=== PATIENT | male | born 1940 | race Caucasian/White ===

== ENCOUNTER 2016-09-15 15:29 | Inpatient (IN) | payer MEDICARE, MEDICAID ==
[~2016-09-15] VITALS: Ht 167.6 cm; Wt 68.0 kg
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
[2016-09-15 16:15] LABS: BASOPHILS # (AUTO) 0.2 /CMM (0.0-0.2); BASOPHILS % (AUTO) 2.6 % (0.0-2.0); EOSINOPHILS # (AUTO) 0.1 /CMM (0.0-0.7); EOSINOPHILS % (AUTO) 0.7 % (0.0-6.0); HEMATOCRIT 44 % (39-51); HEMOGLOBIN 14.1 g/dL (13.5-17.5); LYMPHOCYTES # (AUTO) 0.9 /CMM (0.8-4.8); LYMPHOCYTES % (AUTO) 9.6 % (20.0-44.0); MEAN CORPUSCULAR HEMOGLOBIN 28 PG (26.0-33.0); MEAN CORPUSCULAR HGB CONC 32 g/dl (31.0-36.0); MEAN CORPUSCULAR VOLUME 87 fL (80-96); MONOCYTES # (AUTO) 0.6 /CMM (0.1-1.30); MONOCYTES % (AUTO) 5.9 % (2.0-12.0); NEUTROPHILS # (AUTO) 7.8 /CMM (1.8-8.9); NEUTROPHILS % (AUTO) 81.2 % (43.0-81.0); PLATELET COUNT (AUTO) 343 /CMM (150-450); RDW COEFFICIENT OF VARIATION 13.5 (11.5-15.0); RED BLOOD CELL COUNT(AUTO) 5.11 MIL/uL (4.5-6.0); WHITE BLOOD COUNT (AUTO) 9.6 K/uL (4.3-11.0)
--- NOTE | 2016-09-15 16:20 | NUR ---
PT UNABLE TO PROVIDE URINE AT THIS TIME. REQUESTS FOR SOMETHING TO DRINK- PROVIDED.
[2016-09-15 16:26] LABS: CALCIUM, SERUM 8.6 mg/dL (8.5-10.1); CARBON DIOXIDE 26 mmol/L (21-32); CHLORIDE 105 mmol/L (98-107); CREATININE 1.6 mg/dL (0.6-1.3); POTASSIUM 3.8 mmol/L (3.5-5.1); SODIUM SERUM 140 mmol/L (136-145); UREA NITROGEN, BLOOD 24 mg/dL (7-18)
[2016-09-15 16:35] LABS: ALANINE AMINOTRANSFERASE 22 U/L (12-78); ALBUMIN 3.8 g/dL (3.4-5.0); ALCOHOL, BLOOD < 3 mg/dL (0-0); ALKALINE PHOSPHATASE 150 U/L (46-116); ASPARTATE AMINOTRANSFERASE 21 U/L (15-37); BILIRUBIN,DIRECT 0.1 mg/dL (0.0-0.2); BILIRUBIN,TOTAL 0.5 mg/dL (0.2-1.0); GLUCOSE 169 mg/dL (74-106); TOTAL PROTEIN, SERUM 7.2 g/dL (6.4-8.2)
[2016-09-15 16:39] LABS: ACETAMINOPHEN 0 ug/ml (10-30); SALICYLATE 1.4 mg/dL (2.8-20.0)
--- NOTE | 2016-09-15 17:15 | NUR ---
PT STILL UNABLE TO PROVIDE URINE SAMPLE AT THIS TIME.
--- NOTE | 2016-09-15 18:21 | NUR ---
CALLED PINKY BOOK OR SCRIPT EDITOR THREE TIMES. CALL GOES STRAIGHT TO VOICEMAIL.
--- NOTE | 2016-09-15 19:15 | NUR ---
CALLED ALYSA CASTANON , SHE CALLED EST[facility]EN AND SHE WAS NOTIFIED THAT [facility] IS ON VACATION. ART WAS CONTACTED AND WILL BE COMINING IN TO SEE THE PATIENT.
--- NOTE | 2016-09-15 19:30 | NUR ---
Art, LEAD HANDLER, at bedside for eval.
[2016-09-15] MEDS ORDERED: MAG30ORA PO (20:23)
[2016-09-15] MEDS ORDERED: DEXT15DR6 EACHEYE (20:23)
[2016-09-15] MEDS ORDERED: LORA1TAB PO (20:23)
[2016-09-15] MEDS ORDERED: FINA5TAB4 PO (20:23)
[2016-09-15] MEDS ORDERED: APIX5TAB PO (20:23)
[2016-09-15] MEDS ORDERED: AMIO200T2 PO (20:23)
[2016-09-15] MEDS ORDERED: NITR0.4T6 SL (20:23)
[2016-09-15] MEDS ORDERED: HYDR-552 PO (20:23)
[2016-09-15] MEDS ORDERED: NA P133E RC (20:23)
[2016-09-15] MEDS ORDERED: GABA-532 PO (20:23)
[2016-09-15] MEDS ORDERED: MULT-70 PO (20:23)
[2016-09-15] MEDS ORDERED: HYDR-3326 PO (20:23)
[2016-09-15] MEDS ORDERED: BUME1TAB4 PO (20:23)
[2016-09-15] MEDS ORDERED: TYL2T PO (20:23)
--- NOTE | 2016-09-15 20:46 | NUR ---
Report given to Shahla BEE for gps admission and dolores.
--- NOTE | 2016-09-15 20:50 | NUR ---
Patient transported to gps 214, no incident noted.
--- NOTE | 2016-09-15 21:00 | NUR ---
GPS RN NOTES ADMITTED A 76 YEARS OLD MALE PT FROM ER WITH DIAGNOSIS OF PSYCHOSIS UNDER KYLER QUICK.AIRCRAFT STRUCTURE MECHANIC. PT ALERT AND ORIENTED X2-3 WITH CONFUSION. PT ON ROOM AIR, NO SOB, NOT IN DISTRESS WITH GOOD SATURATION. PT DENIES ANY PAIN AND DISCOMFORT AT THIS TIME. SKIN AND BODY ASSESSMENT DONE, NOTED WITH REDNESS ON SACRAL AREA AND SWELLING OF SCROTUM WITH PICTURES TAKEN AND FILED IN THE CHART. PT ABLE TO AMBULATE WITH ASSIST, NOTED WITH UNSTEADY GAIT. KEPT BED IN THE LOWEST POSITION, LOCKED, SIDE RAILS UP WITH BED ALARM ON. ALL ORDERS NOTED AND CARRIED OUT. SAFETY MEASURES AND FALL PRECAUTION OBSERVED. WILL CONTINUE TO MONITOR PT. Addendum: 09/16/16 at 0238 by RENARD TAPIA PATIENT IS ADMITTED ON A 5150 HOLD FOR GRAVE DISABILITY. PER HOLD THE PATIENT IS HAVING INCREASED SEXUAL IDEATION TOWARDS STAFF, AGITATED, DELUSIONAL AND INCREASED CONFUSION. PATIENT WILL BE UNDER THE CARE OF DR. ZACARIAS AND DR. QUICK. ORIENTATION TO UNIT, STAFF AND UNIT POLICIES. UPON FACE TO FACE ASSESSMENT PATIENT IS ALERT AND ORIENTED X2-3. 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 BELONGINGS AND CONTRABAND CHECKED. LIMIT SETTING DONE. REALITY ORIENTATION DONE. WILL CONTINUE TO MONITOR PATIENT FOR MOOD, SAFETY AND BEHAVIOR.
[2016-09-15] MEDS ORDERED: clonazePAM 0.5 MG TABLET PO PRN (22:00)
[2016-09-15] MEDS ORDERED: MAGNESIUM HYDROXIDE 30 ML UDC PO PRN (22:00)
[2016-09-15] MEDS ORDERED: TEMAZEPAM 7.5 MG CAPSULE PO PRN (22:00)
[2016-09-15] MEDS ORDERED: MAG HYDROX/AL HYDROX/SIMETH 30 ML UDC PO PRN (22:00)
[2016-09-15] MEDS ORDERED: ACETAMINOPHEN 325 MG TABLET PO PRN (22:00)
[2016-09-16] MEDS ORDERED: HYDROCODONE/APAP 10/325MG 1 EA TABLET ONE (00:09)
--- NOTE | 2016-09-16 00:14 | NUR ---
GPS RN NOTES PT COMPLAINS OF 6/10 PAIN ON HIS BOTH LOWER LEG, NORCO 10/325 MG TAB GIVEN PO AND TOLERATED WELL, ORDERED BY KYLER QUICK NP. WILL CONTINUE TO MONITOR PT.
[2016-09-16] MEDS ORDERED: HYDROCODONE/APAP 10/325MG 1 EA TABLET PO PRN (00:30)
[2016-09-16] MEDS ORDERED: NA PHOS,M-B/NA PHOS,DI-BA 1 EA ENEMA RC PRN (01:00)
[2016-09-16] MEDS ORDERED: HYDROCODONE/APAP 5/325MG 1 EACH TABLET ONE (06:14)
[2016-09-16] MEDS: HYDROCODONE/APAP 5/325MG 1 EACH TABLET PO PRN ×3 (06:18→23:47)
[2016-09-16] MEDS ORDERED: Z GUARD REMEDY 2 OZ OINT TP PRN (06:30)
[2016-09-16 07:02] LABS: CREATININE 1.3 mg/dL (0.6-1.3)
[2016-09-16 07:10] LABS: CHOLESTEROL 239 mg/dL (<200); HDL CHOLESTEROL 74 mg/dL (40-60); LDL 157 mg/dL (0-99); TRIGLYCERIDES 49 mg/dL (30-150)
[2016-09-16 08:00] VITALS: BP 142/75
[2016-09-16] MEDS: BUMETANIDE (1 MG) 1 MG TABLET PO SCH (08:46)
[2016-09-16] MEDS ORDERED: POLYVINYL ALCOHOL 15 ML BOTTLE EACHEYE PRN (10:00)
[2016-09-16] MEDS: GABAPENTIN 100 MG CAPSULE PO SCH ×3 (11:41→16:33)
[2016-09-16] MEDS: AMIODARONE HCL 200 MG TABLET PO SCH (11:42)
[2016-09-16] MEDS: QUETIAPINE FUMARATE 25 MG TABLET PO SCH ×2 (11:42→16:33)
[2016-09-16] MEDS: MULTIVITAMINS,THERAGRAN 1 UDTAB TABLET PO SCH (11:42)
[2016-09-16] MEDS: FINASTERIDE (5 MG) 5 MG TABLET PO SCH (11:45)
[2016-09-16] MEDS: APIXABAN 5 MG TABLET PO SCH ×2 (13:26→21:03)
--- NOTE | 2016-09-16 13:28 | NUR ---
GPS/RN PATIENT REPORTS 10/10 GENERALIZED PAIN, ADMINISTERED NORCO 5/325 2 TABS ORDERED, WILL CONTINUE TO MONITOR .
--- NOTE | 2016-09-16 14:35 | NUR ---
Initial Discharge Plan: Patient resides at [facility] [address] [place] [address]. ([phone]). Sw attempted to contact patient's son Zeeshan Ramos ([phone]) however, he was unavailable Sw left him a detailed message with her direct contact number. Sw spoke to patient's brother Cong Ramos ([phone]) who confirmed that patient resides at [facility], patient's brother stated that Zeeshan patient's son is the main contact lens flashing puncher. Mark spoke to Ingrid from the facility who stated that Briseyda from admissions will follow-up with social sciences chair about whether pt. can return to the facility upon discharge. Sw will help form a safe and proper discharge.
[2016-09-16 16:00] VITALS: BP 119/60
[2016-09-16 20:24] VITALS: BP 140/65
[2016-09-17 08:00] VITALS: BP 140/67
--- NOTE | 2016-09-17 09:51 | NUR ---
Sw attempted to contact patient's son Zeeshan Ramos ([phone]) however, he was unavailable Sw was unable to leave him a voicemail as his voicemail box was full and could not accept messages. SW attempted to contact patient's brother Cong Ramos ([phone]) however, he was unavailable. Sw was unable to leave a message as he had a voicemail box that had not been set up yet. Sw attempted to contact a phone number provided by Nhung from [facility] ([phone]) However, the person that picked up said it was the wrong number. Sw will attempt again later.
--- NOTE | 2016-09-17 09:55 | NUR ---
Mark spoke to Nhung (Admissions) from [facility] [phone]) [address] [place] [address]. Who confirmed that patient is on a bedhold and can return when ready and stable for discharge.
[2016-09-17] MEDS: QUETIAPINE FUMARATE 25 MG TABLET PO SCH ×2 (10:09→16:59)
[2016-09-17] MEDS: BUMETANIDE (1 MG) 1 MG TABLET PO SCH (10:09)
[2016-09-17] MEDS: MULTIVITAMINS,THERAGRAN 1 UDTAB TABLET PO SCH (10:10)
[2016-09-17] MEDS: FINASTERIDE (5 MG) 5 MG TABLET PO SCH (10:10)
[2016-09-17] MEDS: GABAPENTIN 100 MG CAPSULE PO SCH ×3 (10:10→16:59)
[2016-09-17] MEDS: AMIODARONE HCL 200 MG TABLET PO SCH (10:12)
[2016-09-17] MEDS: APIXABAN 5 MG TABLET PO SCH ×2 (10:13→16:59)
[2016-09-17 15:58] VITALS: BP 134/85
[2016-09-17 18:57] VITALS: BP 140/67
[2016-09-17 20:28] VITALS: BP 127/76
[2016-09-17] MEDS: HYDROCODONE/APAP 5/325MG 1 EACH TABLET PO PRN (22:00)
[2016-09-18] MEDS: HYDROCODONE/APAP 5/325MG 1 EACH TABLET PO PRN ×2 (05:12→23:08)
[2016-09-18 08:00] VITALS: BP 147/73
[2016-09-18] MEDS: BUMETANIDE (1 MG) 1 MG TABLET PO SCH (08:59)
[2016-09-18] MEDS: FINASTERIDE (5 MG) 5 MG TABLET PO SCH (08:59)
[2016-09-18] MEDS: MULTIVITAMINS,THERAGRAN 1 UDTAB TABLET PO SCH (08:59)
[2016-09-18] MEDS: GABAPENTIN 100 MG CAPSULE PO SCH ×3 (08:59→17:11)
[2016-09-18] MEDS: AMIODARONE HCL 200 MG TABLET PO SCH (09:00)
[2016-09-18] MEDS: APIXABAN 5 MG TABLET PO SCH ×2 (09:00→17:17)
[2016-09-18] MEDS: QUETIAPINE FUMARATE 25 MG TABLET PO SCH ×2 (09:00→17:11)
--- NOTE | 2016-09-18 09:05 | NUR ---
GPS RN: PATIENT REFUSED SEROQUEL X 3. EXPLAINED THE PURPOSE AND THE IMPORTANCE OF MEDICATION, PATIENT STATES: "I AM NOT A PSYCH PATIENT, I DON'T NEED THIS". NO AGITATION, VS STABLE, CONTINUE TO MONITOR THE PATIENT.
[2016-09-18 16:00] VITALS: BP 122/93
--- NOTE | 2016-09-18 16:23 | NUR ---
Mark attempted to contact patient's son Zeeshan Ramso ([phone]) however, he was unavailable Sw was unable to leave him a voicemail as his voicemail box was full and could not accept messages. MARK attempted to contact patient's brother Cong Ramos ([phone]) however, he was unavailable. Sw was unable to leave a message as he had a voicemail box that had not been set up yet. Mark will attempt again tomorrow.
[2016-09-18 20:00] VITALS: BP 130/68
--- NOTE | 2016-09-18 23:12 | NUR ---
RN NOTES PT IS COMPLAINING OF GENERALIZED PAIN- NORCO 5/325 MG PO GIVEN ORDERED, V/S STABLE
--- NOTE | 2016-09-19 00:48 | NUR ---
RN NOTES PT IS A LITTLE BIT ANXIOUS- KLONOPIN 0.5MG PO GIVEN ORDERED, V/S STABLE
[2016-09-19 08:00] VITALS: BP 109/60
[2016-09-19] MEDS: FINASTERIDE (5 MG) 5 MG TABLET PO SCH (09:10)
[2016-09-19] MEDS: MULTIVITAMINS,THERAGRAN 1 UDTAB TABLET PO SCH (09:10)
[2016-09-19] MEDS: BUMETANIDE (1 MG) 1 MG TABLET PO SCH (09:10)
[2016-09-19] MEDS: GABAPENTIN 100 MG CAPSULE PO SCH ×3 (09:10→16:38)
[2016-09-19] MEDS: APIXABAN 5 MG TABLET PO SCH ×2 (09:11→16:38)
[2016-09-19] MEDS: QUETIAPINE FUMARATE 25 MG TABLET PO SCH ×2 (09:11→16:38)
[2016-09-19] MEDS: AMIODARONE HCL 200 MG TABLET PO SCH (09:11)
[2016-09-19] MEDS: HYDROCODONE/APAP 5/325MG 1 EACH TABLET PO PRN ×2 (15:14→22:02)
[2016-09-19 16:00] VITALS: BP 113/66
--- NOTE | 2016-09-19 16:02 | NUR ---
Discharge Note: Patient will be discharged to [facility] [phone]) [address] [place] [address]. Via med response. Patient's brother Cong Ramos ([phone]) was informed and was agreeable with the discharge plan. Sw Patient's mood and affect are appropriate. Patient denies suicidal and homicidal ideations. Patient will follow-up with psychiatrist Dr. Dixon ([phone]) at the facility. Facilitated info to IDT team who are in agreement with discharge arrangement. The multidisciplinary exitcare form was done, printed, signed, and given to the patient.
--- NOTE | 2016-09-19 16:11 | NUR ---
Mark spoke to Briseyda (Admissions) from [facility] ([phone]) [address] [address]. Who confirmed that patient can return to the facility tomorrow 09/20/16.
--- NOTE | 2016-09-19 16:11 | NUR ---
Sw attempted to contact patient's son Zeeshan Ramos ([phone]) however, he was unavailable Sw was unable to leave him a voicemail as his voicemail box was full and could not accept messages.
[2016-09-19 20:00] VITALS: BP 124/86
[2016-09-20 06:23] LABS: BASOPHILS % (AUTO) 0.6 % (0.0-2.0); EOSINOPHILS # (AUTO) 0.3 /CMM (0.0-0.7); EOSINOPHILS % (AUTO) 3.9 % (0.0-6.0); HEMATOCRIT 37 % (39-51); HEMOGLOBIN 12.5 g/dL (13.5-17.5); LYMPHOCYTES # (AUTO) 1.7 /CMM (0.8-4.8); LYMPHOCYTES % (AUTO) 26.4 % (20.0-44.0); MEAN CORPUSCULAR HEMOGLOBIN 29 PG (26.0-33.0); MEAN CORPUSCULAR HGB CONC 34 g/dl (31.0-36.0); MEAN CORPUSCULAR VOLUME 88 fL (80-96); MONOCYTES # (AUTO) 0.7 /CMM (0.1-1.30); MONOCYTES % (AUTO) 10.4 % (2.0-12.0); NEUTROPHILS # (AUTO) 3.9 /CMM (1.8-8.9); NEUTROPHILS % (AUTO) 58.7 % (43.0-81.0); PLATELET COUNT (AUTO) 267 /CMM (150-450); RDW COEFFICIENT OF VARIATION 14.8 (11.5-15.0); RED BLOOD CELL COUNT(AUTO) 4.24 MIL/uL (4.5-6.0); WHITE BLOOD COUNT (AUTO) 6.6 K/uL (4.3-11.0)
--- NOTE | 2016-09-20 06:37 | NUR ---
RN GPS NOTES PATIENT RESTING HIS BED, NO CHANGES IN STATUS. ALL NEEDS ATTENDED TO. WILL ENDORSE TO NEXT SHIFT FOR CONTINUITY CARE.
[2016-09-20 06:43] LABS: CALCIUM, SERUM 8.2 mg/dL (8.5-10.1); CARBON DIOXIDE 28 mmol/L (21-32); CHLORIDE 106 mmol/L (98-107); CREATININE 1.3 mg/dL (0.6-1.3); GLUCOSE 85 mg/dL (74-106); MAGNESIUM 2.2 mg/dL (1.8-2.4); PHOSPHORUS 4.1 mg/dL (2.5-4.9); SODIUM SERUM 143 mmol/L (136-145); UREA NITROGEN, BLOOD 27 mg/dL (7-18)
[2016-09-20 08:00] VITALS: BP 140/76
[2016-09-20] MEDS: GABAPENTIN 100 MG CAPSULE PO SCH ×2 (08:04→12:13)
[2016-09-20] MEDS: QUETIAPINE FUMARATE 25 MG TABLET PO SCH (08:04)
[2016-09-20] MEDS: BUMETANIDE (1 MG) 1 MG TABLET PO SCH (08:04)
[2016-09-20 08:05] VITALS: BP 140/76
[2016-09-20] MEDS: MULTIVITAMINS,THERAGRAN 1 UDTAB TABLET PO SCH (08:05)
[2016-09-20] MEDS: AMIODARONE HCL 200 MG TABLET PO SCH (08:05)
[2016-09-20] MEDS: FINASTERIDE (5 MG) 5 MG TABLET PO SCH (08:05)
[2016-09-20] MEDS: APIXABAN 5 MG TABLET PO SCH (08:06)
--- NOTE | 2016-09-20 09:29 | NUR ---
DR. ZACARIAS GAVE AN ORDER TO D/C HOLD AND D/C TO [facility]. PT. WITHOUT DISTRESS, DENIES SUICIDAL AND HOMICIDAL AND TO FOLLOW UP WITH PSYCH AND MEDICAL DOCTORS. SPOKE TO MEL IN ADMITTING AT [facility] AND SAID THEY WILL ACCEPT HIM BACK TODAY.
--- NOTE | 2016-09-20 13:15 | NUR ---
GPS RN: PATIENT DISCHARGED TO [facility]. PATIENT'S CONDITION IS STABLE FOR DISCHARGE, VS STABLE. PATIENT DENIES ANY SI/HI/AVH AT THE TIME OF DISCHARGE. ALL BELONGINGS RETURNED TO THE PATIENT. MEDICATIONS RECONCILED AND THE COPY PROVIDED TO THE PATIENT ALONG WITH THE EDUCATIONAL EXIT CARE. REPORT GIVEN TO FABIEN BEE ACCOUNTING ADMINISTRATOR. PATIENT LEFT THE UNIT ON A GURNEY [facility]IA [facility].
[2016-09-23 10:21] LABS: CALCITRIOL VIT D,1, 25 DIHYDRO 35.6 pg/mL (19.9-79.3)
== END 2016-09-20 13:15 | DRG 885 ==
LOC: ER 15:34 → GPS 20:25
PROVIDERS: ADMIT Psychiatry & Neurology Psychiatry; ATTEND Psychiatry & Neurology Psychiatry
DX: F29 Unspecified psychosis not due to a substance or known physiological condition (principal); N17.0 Acute kidney failure with tubular necrosis; I50.32 Chronic diastolic (congestive) heart failure; I13.0 Hypertensive heart and chronic kidney disease with heart failure and stage 1 through stage 4 chronic kidney disease, or unspecified chronic kidney disease; I50.30 Unspecified diastolic (congestive) heart failure; F03.90 Unspecified dementia, unspecified severity, without behavioral disturbance, psychotic disturbance, mood disturbance, and anxiety; F31.9 Bipolar disorder, unspecified; Z88.5 Allergy status to narcotic agent; N40.0 Benign prostatic hyperplasia without lower urinary tract symptoms; Z73.6 Limitation of activities due to disability; E11.22 Type 2 diabetes mellitus with diabetic chronic kidney disease; E78.5 Hyperlipidemia, unspecified; E86.9 Volume depletion, unspecified; K44.9 Diaphragmatic hernia without obstruction or gangrene; I48.0 Paroxysmal atrial fibrillation; F22 Delusional disorders; N18.9 Chronic kidney disease, unspecified
CPT/HCPCS: 36415; 71010-TC; 80048-TC; 80061-TC; 80076-TC; 82306; 82565-TC; 82652; 83735-TC; 83970; 84100-TC; 85025-TC; A4606; G0480; Z7610

== ENCOUNTER 2017-02-15 07:15 | Emergency (ER) | payer MEDICARE, MEDICAID ==
[~2017-02-15] VITALS: Ht 177.8 cm; Wt 82.1 kg
[~2017-02-15 07:15] MED LIST: AMIO200T2 PO; APIX5TAB PO; BUME1TAB4 PO; DEXT15DR6 EACHEYE; FINA5TAB4 PO; GABA-532 PO; HYDR-3326 PO; HYDR-552 PO; LORA1TAB PO; MAG30ORA PO; MULT-594 PO; NA P133E RC; NITR0.4T48 SL; TYL2T PO
--- NOTE | 2017-02-15 07:25 | NUR ---
BBRA 81 FROM [facility] C/P CP X 1 HOUR NON RADIATING. A/OX 4. BREATHING EVEN AND UNLABORED. NO SOB. VITALS STABLE. SAFETY AND COMFORT MEASURES IN PLACE. AWAITING MD ORDERS.
--- NOTE | 2017-02-15 07:35 | NUR ---
DIRECTOR OF EARLY CHILDHOOD AT BEDSIDE FOR BLOOD DRAW.
[2017-02-15 07:52] LABS: BASOPHILS % (AUTO) 0.6 % (0.0-2.0); EOSINOPHILS # (AUTO) 0.1 /CMM (0.0-0.7); EOSINOPHILS % (AUTO) 1.1 % (0.0-6.0); HEMATOCRIT 40 % (39-51); HEMOGLOBIN 13.1 g/dL (13.5-17.5); LYMPHOCYTES # (AUTO) 1.7 /CMM (0.8-4.8); LYMPHOCYTES % (AUTO) 21.9 % (20.0-44.0); MEAN CORPUSCULAR HEMOGLOBIN 28 PG (26.0-33.0); MEAN CORPUSCULAR HGB CONC 33 g/dl (31.0-36.0); MEAN CORPUSCULAR VOLUME 85 fL (80-96); MONOCYTES # (AUTO) 0.6 /CMM (0.1-1.30); MONOCYTES % (AUTO) 7.4 % (2.0-12.0); NEUTROPHILS # (AUTO) 5.3 /CMM (1.8-8.9); PLATELET COUNT (AUTO) 332 /CMM (150-450); RDW COEFFICIENT OF VARIATION 14.4 (11.5-15.0); RED BLOOD CELL COUNT(AUTO) 4.67 MIL/uL (4.5-6.0); WHITE BLOOD COUNT (AUTO) 7.7 K/uL (4.3-11.0)
[2017-02-15 07:59] LABS: ALANINE AMINOTRANSFERASE 26 U/L (12-78); ALBUMIN 3.7 g/dL (3.4-5.0); ALKALINE PHOSPHATASE 137 U/L (46-116); ASPARTATE AMINOTRANSFERASE 13 U/L (15-37); BILIRUBIN,TOTAL 0.6 mg/dL (0.2-1.0); CALCIUM, SERUM 9.2 mg/dL (8.5-10.1); CARBON DIOXIDE 27 mmol/L (21-32); CHLORIDE 108 mmol/L (98-107); CREATININE 1.4 mg/dL (0.6-1.3); GLUCOSE 104 mg/dL (74-106); POTASSIUM 3.9 mmol/L (3.5-5.1); SODIUM SERUM 146 mmol/L (136-145); TOTAL PROTEIN, SERUM 7.3 g/dL (6.4-8.2); UREA NITROGEN, BLOOD 29 mg/dL (7-18)
[2017-02-15] MEDS ORDERED: oxyCODONE/APAP (5/325 MG) 1 UDTAB TABLET ONE (08:28)
[2017-02-15] MEDS ORDERED: oxyCODONE/APAP (5/325 MG) 1 UDTAB TABLET PO ONE (08:30)
[2017-02-15 09:01] LABS: INR 0.96 (0.87-1.13)
--- NOTE | 2017-02-15 10:40 | NUR ---
CALLED [facility] ETA 1 HR [id number] TRIP NUMBER
--- NOTE | 2017-02-15 12:05 | NUR ---
Patient discharged to SNF in stable condition. Written and verbal after care instructions given. Patient verbalizes understanding of instruction.
[2017-02-15 12:07] VITALS: BP 142/80
== END 2017-02-15 12:08 ==
LOC: ER 07:16
DX: R07.9 Chest pain, unspecified (principal); I10 Essential (primary) hypertension; Z79.01 Long term (current) use of anticoagulants; Z88.5 Allergy status to narcotic agent
CPT/HCPCS: 36415; 80053; 84484; 85025; 85730; 93005; 99285; A4606 ×2; Z7610